=== PATIENT | female | born 1945 ===

== ENCOUNTER 2022-04-20 06:21 | Day surgery (SDC) | payer MEDICARE, SELFPAY ==
[2022-04-20 06:25] VITALS: BP 153/67; PULSE 72; RESP 18; TEMP 36.1; O2SAT 99
--- NOTE | 2022-04-20 06:26 | ANES.PREOP_ITS ---
General Info Date of Service Date Performed: 04/20/22 Height: 5 ft 5 in Weight: 59.421 kg Body Mass Index (BMI): 21.8 Surgical Procedure: Operation Date: 04/20/22 07:40 Proposed Procedure Side Surgeon p Cataract Extraction with IOL Implant Left Gildardo Crandall MD Meds Allergies and Home Medications Allergies Allergy/AdvReac Type Severity Reaction Status Date / Time animal dander Allergy Unknown Verified 04/20/22 06:35 grass pollen Allergy Unknown Verified 04/20/22 06:35 mold Allergy Unknown Verified 04/20/22 06:35 Home Medication Medication Instructions Recorded albuterol sulfate 90 mcg/actuation 2 puff inhalation 6XD PRN 04/16/22 aerosol inhaler (ProAir HFA) apixaban 5 mg tablet (Eliquis) 5 mg PO DIRECTED 04/16/22 atorvastatin 20 mg tablet 20 mg PO DAILY 04/16/22 cholecalciferol (vitamin D3) 50 50 mcg PO DAILY 04/16/22 mcg (2,000 unit) capsule fluticasone propionate 110 2 puff inhalation BID 04/16/22 mcg/actuation HFA aerosol inhaler (Flovent HFA) levothyroxine 125 mcg tablet 125 mcg PO DAILY 04/16/22 loratadine 10 mg capsule 10 mg PO DAILY PRN 04/16/22 metoprolol succinate 50 mg 50 mg PO DAILY 04/16/22 tablet,extended release 24 hr multivitamin 1 tab PO DAILY 04/16/22 omeprazole 20 mg capsule,delayed 20 mg PO DIRECTED 04/16/22 release paroxetine HCl 20 mg tablet 20 mg PO DAILY 04/16/22 Current Visit Medications: Current Medications Generic Name Dose Route Start Last Admin Trade Name Freq PRN Reason Stop Dose Admin Acetaminophen 1,000 mg 04/20/22 06:00 Acetaminophen 500 Mg Tab PO Q4H PRN PRN Miscellaneous Medication 0 ml 04/20/22 06:00 Prednisolone 1%, Moxifloxacin 0.5%, Nepafenac 0.1% 5ml Btl OS DIRECTED [facility] Miscellaneous Medication 0 ml 04/20/22 06:00 Tropicam./Phenyleph. (1/2.5%) 5 Ml Btl OS DIRECTED [facility]ER Tetracaine HCl 0 ml 04/20/22 06:00 Tetracaine 0.5% 4 Ml Btl OS DIRECTED PARMINDER PFSH Active Problems Active Problems: Problem Status Onset Code Nuclear sclerotic cataract of left eye H25.12 Medical History Medical History Acquired renal cyst Actinic keratitis Allergic rhinitis Anxiety Asthma Atrial fibrillation Basal cell carcinoma (BCC) of skin Dermatofibroma Emphysematous bleb of lung Essential tremor SARAH (generalized anxiety disorder) Hyperlipemia Hypertensive disorder Hypothyroid Impaired fasting glucose Insomnia Lipoma of skin Neoplasm of skin Osteochondropathy Osteoporosis Paroxysmal atrial fibrillation Surgical History Surgical History History of cholecystectomy History of colonoscopy History of hernia repair Tobacco Smoking/Tobacco Use Status: Former Tobacco Use Substance Use Substance use type: does not use Vital Signs and Lab Results Lab Results Blood Type / Crossmatch: No Data to Display Complete Blood Count: No Data to Display Complete Metabolic Panel: No Data to Display Liver Function Panel: No Data to Display Coagulation Panel: No Data to Display Cardiac Panel: No Data to Display Arterial Blood Gas: No Data to Display Venous Blood Gas: No Data to Display Pancreas Panel: No Data to Display Thyroid Panel: No Data to Display Infectious Disease: No Data to Display Blood Cultures: No Data to Display Toxicology Panel: No Data to Display Anesthesia Assessment and Plan Anesthesia History Personal History: No History of Anesthesia Complications Family History: No Family History of Anesthesia Complications Exercise Tolerance Exercise Tolerance: Metabolic Equivalents>4 Cardiac & Pulmonary Exam Cardiac Exam: Normal S1/S2 Heart Sounds Pulmonary Exam: Clear Bilateral Breath Sounds Implantable Cardiac Device Does patient have a Pacemaker or an ICD?: No Airway Exam Known Difficult Airway: No Mallampati Class: 2 Mouth Opening: Normal (> 3cm) Thyromental Distance: Greater than 3 cm Neck Range of Motion: Full ROM Neck Circumference: Normal Teeth Condition: Normal Dentition and Removable Dentures/Plates Upper ASA Classification ASA Score: ASA 2 Emergency Case?: No NPO Status NPO Status: NPO Clears >2 hours, Solids >8 hours Anesthesia Plan Resuscitation Status: Full Code Anesthesia Technique: MAC Anesthesia Airway Planned: Natural Airway Monitors Used: Standard Monitors Preoperative Comments:: 77 yo female for cataract removal. Sig PMHx: anxiety, tremor, asthma (albuterol, Flovent), renal cyst, HTN (metoprolol), hypothyroid (levothyroxine), afib (eliquis), former smoker.
[2022-04-20] MEDS: Tropicam./Phenyleph. (1/2.5%) 5 ML BTL OS ×3 (06:34→06:46)
[2022-04-20 07:11] VITALS: BMI 21.8
[2022-04-20] MEDS: Tetracaine 0.5% 4 ML BTL OS (07:28)
[2022-04-20] MEDS: Povidone-Iodine Ophth 30 ML BTL (07:28)
[2022-04-20] MEDS: Lidocaine 2% Jelly 6 ML SYR (07:29)
[2022-04-20] MEDS: Balanced Salt Soln.-PLUS 500 ML BAG (07:35)
[2022-04-20] MEDS: Duovisc Viscoelastic System EACH 1 EACH (07:35)
[2022-04-20] MEDS: Lidocaine 1% Pres-Free 5 ML VIAL (07:36)
[2022-04-20 08:05] VITALS: BP 142/62; PULSE 68; RESP 16; TEMP 36.3; O2SAT 100
--- NOTE | 2022-04-20 08:07 | ROE_ITS ---
Date of service: 04/20/22 Time of Service: 08:08 Operative Note Operative Note DATE OF PROCEDURE: 04/20/22 PRE-OP DIAGNOSIS: Nuclear cataract, left eye POST-OP DIAGNOSIS: same PROCEDURE: Cataract extraction using phacoemulsification with intraocular lens implant, left eye SURGEON: Gildardo Crandall ANESTHESIA TYPE: Local By Surgeon and MAC Refer to Anesthesia Record PATHOLOGY: none sent COMPLICATIONS: None Patient was transported to: same day Patient's condition: stable Implants: Jason and Jason / [employer] Tecnis [id number] Indications: Progressive decreased vision due to cataract, left eye Procedure Description: CATARACT SURGERY OPERATIVE REPORT PREOPERATIVE DIAGNOSIS: 1. Nuclear cataract, left eye POSTOPERATIVE DIAGNOSIS: Same OPERATION: 1. Cataract extraction using phacoemulsification with posterior chamber intraocular lens implant, left eye. IOL: IOL [facility] Resident/Model: Jason & Jason / ALMA Tecnis [id number] IOL Power: + 19.0 diopters IOL Serial Number: [id number] Optic Diameter: 6.0 mm Haptic/Overall Diameter: 13.0 mm PHACO INFO: Rahul [employer] Dermatologyurion Vision System with OZil and Active Fluidics Cumulative Dispersed Energy (CDE): 34.60 seconds SURGEON: Gildardo Crandall MD, JOSE ANESTHESIA: Monitored A [facility] (MAC), with local sub-tenon's anesthetic infiltration COMPLICATIONS: None SPECIMENS: None INDICATIONS FOR PROCEDURE: The patient is a 77-year-old lady with history of diminished visual acuity in her left eye secondary to the development of dense nuclear cataract. She is significantly symptomatic that she desires cataract surgery and attempt to improve and maximize her vision. The option of cataract surgery was offered to the patient and she wished to proceed. PROCEDURE: The correct surgical eye was identified and marked as the left eye and the pupil was dilated in the preoperative area using mydriatics and cycloplegics. The dilated pupil size was 7.0 mm. The patient elected to proceed without oral sedation. The patient was brought to the operating room where cardiopulmonary monitoring was instituted and surgical time-out was performed, confirming the correct operative eye and IOL power. Topical anesthesia was administered and ophthalmic povidone-iodine 5% was instilled into the conjunctival fornices. Lidocaine gel was applied to the cornea and the daren-ocular area was prepped with Betadine 10% solution and draped in the usual sterile fashion for intraocular surgery, including an aperture drape. A Tegaderm transparent film dressing was cut in half and used to cover the lashes and lid margins. Care was taken to sequester the lashes and lid margins under the Tegaderm dressing. A lid speculum was placed between the lids of the operative eye and the Rahul Lux[employer] Revalia operating microscope was maneuvered into position. Yany scissors were then used to make a conjunctival buttonhole approximately 6mm posterior to the limbus in the inferonasal quadrant. Blunt dissection was carried out to expose bare sclera, and a blunt-tipped sub-tenon?s anesthesia cannula was introduced and passed posteriorly along the globe where non- preserved plain lidocaine was injected into posterior sub-Tenon?s space. A sideport knife was used to make a paracentesis port superiorly/superiortemporally. Intraocular phenylephrine/lidocaine was injected int the anterior chamber.. The anterior chamber was filled with viscoelastic. A keratome knife was used to construct a 2-plane near-clear corneal tunnel extending 2.0mm into clear cornea temporally. A flap was raised on the anterior capsule and capsulorhexis forceps were used to complete a continuous curvilinear capsulorhexis of 5.0 mm. Balanced salt solution was then used to perform cortical cleaving hydrodissection and nuclear hydrodelineation until the lens could be freely rotated within the capsular bag. The lens nucleus was then disassembled and removed within the capsular bag and iris plane using phacoemulsification. The nucleus was noted to be quite dense. Additional Viscoat was instilled intermittently during nuclear fragmentation to protect the corneal endothelium. Residual cortical material was removed using the 45-degree angled silicone I/A tip with 0.3mm port. The posterior capsule was carefully polished to remove as much residual lens epithelial cells as safely possible. The capsular bag was then inflated and the anterior chamber deepened with viscoelastic. The lens implant described above was inserted into the capsular bag using the ALMA [place] Injector. A Kuglen hook was used to dial the IOL into position. Residual viscoelastic was then removed first from posterior to the IOL, then from the anterior chamber using the I/A handpiece. The lens implant was noted to center nicely within the capsular bag. The incisions were stromally hydrated, and the anterior chamber was reformed using BSS. Then 0.5cc of moxifloxacin 1.0mg/ml were injected into the capsular bag and anterior chamber. The incisions were checked with a Weck spear and found to be secure. Several drops of ophthalmic povidone-iodine 5% were then applied to the eye followed by two drops of Imprimis combination prednisolone/moxifloxacin/nepafenac solution. The drapes were removed and a clear plastic protective eye shield was placed over the eye. The patient was then returned to Same Day Surgery in stable condition.
--- NOTE | 2022-04-20 08:07 | W.PM.DSUDISC ---
Date of service: 04/20/22 Time of Service: 08:07 Discharge Plan Disposition Patient Disposition: Home Discharge Details Attending Provider: Gildardo Crandall Primary Care Provider: Sybil Mayo Home Meds and New Rx's Prescriptions: No Action multivitamin Tablet 1 tab PO DAILY atorvastatin 20 mg Tablet 20 mg PO DAILY metoprolol succinate 50 mg Tablet Extended Release 24 Hr 50 mg PO DAILY paroxetine HCl 20 mg Tablet 20 mg PO DAILY levothyroxine 125 mcg Tablet 125 mcg PO DAILY omeprazole 20 mg Capsule,Delayed Release(Dr/Ec) 20 mg PO DIRECTED albuterol sulfate [ProAir HFA] 90 mcg/actuation Hfa Aerosol Inhaler 2 puff INHALATION 6XD PRN fluticasone propionate [Flovent HFA] 110 mcg/actuation Hfa Aerosol Inhaler 2 puff INHALATION BID cholecalciferol (vitamin D3) 50 mcg (2,000 unit) Capsule 50 mcg PO DAILY loratadine 10 mg Capsule 10 mg PO DAILY PRN Eliquis 5 mg Tablet 5 mg PO DIRECTED Discharge Instructions Stand Alone Forms: Post-op Topical Cataract, Dionisio Rao (DSU) Discharge Orders Discharge Orders: Discharge Order (Routine); Ordered 04/20/22 Ordered By: Gildardo Crandall DS: Diagnosis Discharge Diagnosis (1) Nuclear sclerotic cataract of left eye: Status: Resolved
--- NOTE | 2022-04-20 08:22 | W.ANESPOSTOP ---
Postoperative Evaluation Date, Time and Location Date Performed: 04/20/22 Time Performed: 08:10 Patient Location: Day Surgery Unit Vital Signs Most Recent Imported Vital Signs: Most Recent Vital Signs Temp Pulse Resp BP Pulse Ox 36.3 C L 68 16 142/62 H 100 04/20/22 08:05 04/20/22 08:05 04/20/22 08:05 04/20/22 08:05 04/20/22 08:05 Pain Score Most Recent Pain Score: Most Recent Pain Score Pain Level 0 04/20/22 08:05 Assessment Mental Status: Awake (Alert & Oriented to Patient Baseline) Airway and Respiratory Function: Patent airway with normal (patient baseline) respiratory exam Cardiovascular Function: Hemodynamically Stable Hydration Status: Adequately Hydrated Nausea & Vomiting: No Nausea or Vomiting Pain: Pt. Denies Any Pain Peripheral Nerve Block: Patient did not receive a nerve block
== END 2022-04-20 08:32 | disposition home or self-care (01) ==
LOC: SUR 06:22
PROVIDERS: PCP Internal Medicine; Visit Provider Ophthalmology
PROC: (CPT 66984; principal; 2022-04-20 07:30)
DX: H25.12 Age-related nuclear cataract, left eye (principal)
CPT/HCPCS: 66984; V2632

== ENCOUNTER 2022-05-04 06:19 | Day surgery (SDC) | payer MEDICARE, SELFPAY ==
[2022-05-04 06:30] VITALS: BP 139/63; PULSE 67; RESP 18; TEMP 36.4; O2SAT 99
[2022-05-04] MEDS: Tropicam./Phenyleph. (1/2.5%) 5 ML BTL OD ×3 (06:37→06:50)
--- NOTE | 2022-05-04 07:10 | W.ANESPRE ---
General Info Date of Service Date Performed: 05/04/22 Height: 5 ft 5 in Weight: 61.5 kg Body Mass Index (BMI): 22.5 Surgical Procedure: Operation Date: 05/04/22 07:40 Proposed Procedure Side Surgeon p Cataract Extraction with IOL Implant Right Gildardo Crandall MD Meds Allergies and Home Medications Allergies Allergy/AdvReac Type Severity Reaction Status Date / Time animal dander Allergy Unknown Verified 05/04/22 06:38 grass pollen Allergy Unknown Verified 05/04/22 06:38 mold Allergy Unknown Verified 05/04/22 06:38 Home Medication Medication Instructions Recorded albuterol sulfate 90 mcg/actuation 2 puff inhalation 6XD PRN 04/16/22 aerosol inhaler (ProAir HFA) apixaban 5 mg tablet (Eliquis) 5 mg PO DIRECTED 04/16/22 atorvastatin 20 mg tablet 20 mg PO DAILY 04/16/22 cholecalciferol (vitamin D3) 50 50 mcg PO DAILY 04/16/22 mcg (2,000 unit) capsule fluticasone propionate 110 2 puff inhalation BID 04/16/22 mcg/actuation HFA aerosol inhaler (Flovent HFA) levothyroxine 125 mcg tablet 125 mcg PO DAILY 04/16/22 loratadine 10 mg capsule 10 mg PO DAILY PRN 04/16/22 metoprolol succinate 50 mg 50 mg PO DAILY 04/16/22 tablet,extended release 24 hr multivitamin 1 tab PO DAILY 04/16/22 omeprazole 20 mg capsule,delayed 20 mg PO DIRECTED 04/16/22 release paroxetine HCl 20 mg tablet 20 mg PO DAILY 04/16/22 Current Visit Medications: Current Medications Generic Name Dose Route Start Last Admin Trade Name Freq PRN Reason Stop Dose Admin Acetaminophen 1,000 mg 05/04/22 06:00 Acetaminophen 500 Mg Tab PO Q4H PRN PRN Miscellaneous Medication 0 ml 05/04/22 06:00 Prednisolone 1%, Moxifloxacin 0.5%, Nepafenac 0.1% 5ml Btl OD DIRECTED [facility] Miscellaneous Medication 0 ml 05/04/22 06:00 05/04/22 06:50 Tropicam./Phenyleph. (1/2.5%) 5 Ml Btl OD 1 drp DIRECTED [facility] Administration Tetracaine HCl 0 ml 05/04/22 06:00 Tetracaine 0.5% 4 Ml Btl OD DIRECTED [facility] Active Problems Active Problems: Problem Status Onset Code Nuclear sclerotic cataract of left eye H25.12 Medical History Medical History Acquired renal cyst Actinic keratitis Allergic rhinitis Anxiety Asthma Atrial fibrillation Basal cell carcinoma (BCC) of skin Dermatofibroma Emphysematous bleb of lung Essential tremor SARAH (generalized anxiety disorder) Hyperlipemia Hypertensive disorder Hypothyroid Impaired fasting glucose Insomnia Lipoma of skin Neoplasm of skin Osteochondropathy Osteoporosis Paroxysmal atrial fibrillation Surgical History Surgical History (Updated 04/20/22 @ 08:07 by Gildardo Crandall MD) History of cholecystectomy History of colonoscopy History of hernia repair Tobacco Smoking/Tobacco Use Status: Former Tobacco Use Substance Use Substance use type: does not use Vital Signs and Lab Results Vital Signs Most Recent Vital Signs in EMR: Most Recent Vital Signs Temp Pulse Resp BP Pulse Ox 36.4 C L 67 18 139/63 99 05/04/22 06:30 05/04/22 06:30 05/04/22 06:30 05/04/22 06:30 05/04/22 06:30 Lab Results Blood Type / Crossmatch: No Data to Display Complete Blood Count: No Data to Display Complete Metabolic Panel: No Data to Display Liver Function Panel: No Data to Display Coagulation Panel: No Data to Display Cardiac Panel: No Data to Display Arterial Blood Gas: No Data to Display Venous Blood Gas: No Data to Display Pancreas Panel: No Data to Display Thyroid Panel: No Data to Display Infectious Disease: No Data to Display Blood Cultures: No Data to Display Toxicology Panel: No Data to Display Anesthesia Assessment and Plan Anesthesia History Personal History: No History of Anesthesia Complications Family History: No Family History of Anesthesia Complications Exercise Tolerance Exercise Tolerance: Metabolic Equivalents>4 Pertinent Negatives Pertinent Negatives: No Symptoms of GERD Cardiac & Pulmonary Exam Cardiac Exam: Normal S1/S2 Heart Sounds Pulmonary Exam: Clear Bilateral Breath Sounds Implantable Cardiac Device Does patient have a Pacemaker or an ICD?: No Airway Exam Known Difficult Airway: No Mallampati Class: 2 Mouth Opening: Normal (> 3cm) Thyromental Distance: Greater than 3 cm Neck Range of Motion: Full ROM Neck Circumference: Normal Teeth Condition: Normal Dentition and Removable Dentures/Plates Upper ASA Classification ASA Score: ASA 2 Emergency Case?: No NPO Status NPO Status: NPO Clears >2 hours, Solids >8 hours Anesthesia Plan Resuscitation Status: Full Code Anesthesia Technique: MAC Anesthesia Airway Planned: Natural Airway Monitors Used: Standard Monitors
[2022-05-04 07:30] VITALS: BMI 22.5
[2022-05-04] MEDS: Lidocaine 1% Pres-Free 5 ML VIAL (07:40)
[2022-05-04] MEDS: Balanced Salt Soln.-PLUS 500 ML BAG (07:41)
[2022-05-04] MEDS: Lidocaine 2% Jelly 6 ML SYR (07:42)
[2022-05-04] MEDS: Povidone-Iodine Ophth 30 ML BTL (07:42)
[2022-05-04] MEDS: Tetracaine 0.5% 4 ML BTL OD (07:43)
[2022-05-04] MEDS: Duovisc Viscoelastic System EACH 1 EACH (07:43)
[2022-05-04 08:02] VITALS: BP 139/68; PULSE 66; RESP 16; TEMP 36.2; O2SAT 99
--- NOTE | 2022-05-04 08:03 | W.PM.DSUDISC ---
Date of service: 05/04/22 Time of Service: 08:03 Discharge Plan Disposition Patient Disposition: Home Discharge Details Attending Provider: Gildardo Crandall Primary Care Provider: Sybil Mayo Home Meds and New Rx's Prescriptions: No Action multivitamin Tablet 1 tab PO DAILY atorvastatin 20 mg Tablet 20 mg PO DAILY metoprolol succinate 50 mg Tablet Extended Release 24 Hr 50 mg PO DAILY paroxetine HCl 20 mg Tablet 20 mg PO DAILY levothyroxine 125 mcg Tablet 125 mcg PO DAILY omeprazole 20 mg Capsule,Delayed Release(Dr/Ec) 20 mg PO DIRECTED albuterol sulfate [ProAir HFA] 90 mcg/actuation Hfa Aerosol Inhaler 2 puff INHALATION 6XD PRN fluticasone propionate [Flovent HFA] 110 mcg/actuation Hfa Aerosol Inhaler 2 puff INHALATION BID cholecalciferol (vitamin D3) 50 mcg (2,000 unit) Capsule 50 mcg PO DAILY loratadine 10 mg Capsule 10 mg PO DAILY PRN Eliquis 5 mg Tablet 5 mg PO DIRECTED Discharge Instructions Stand Alone Forms: Post-op Topical Cataract, Dionisio Rao (DSU) Discharge Orders Discharge Orders: Discharge Order (Routine); Ordered 05/04/22 Ordered By: Gildardo Crandall DS: Diagnosis Discharge Diagnosis (1) Nuclear sclerotic cataract of right eye: Status: Resolved
--- NOTE | 2022-05-04 08:04 | ROE_ITS ---
Date of service: 05/04/22 Time of Service: 08:04 Operative Note Operative Note DATE OF PROCEDURE: 05/04/22 PRE-OP DIAGNOSIS: Nuclear cataract, right eye POST-OP DIAGNOSIS: same PROCEDURE: Cataract extraction using phacoemulsification with intraocular lens implant, right eye SURGEON: Gildardo Crandall ANESTHESIA TYPE: Local By Surgeon and MAC Refer to Anesthesia Record ESTIMATED BLOOD LOSS: 0 PATHOLOGY: none sent COMPLICATIONS: None Patient was transported to: same day Patient's condition: stable Implants: Jason & Jason Tecnis Eyhance [id number] Indications: Progressive visual loss due to cataract, right eye Procedure Description: CATARACT SURGERY OPERATIVE REPORT PREOPERATIVE DIAGNOSIS: 1. Nuclear cataract, right eye POSTOPERATIVE DIAGNOSIS: Same OPERATION: 1. Cataract extraction using phacoemulsification with posterior chamber intraocular lens implant, right eye. IOL: IOL Abrasive Band Winder/Model: Jason & Jason Tecnis Eyhance [id number] IOL Power: + 20.5 diopters IOL Serial Number: [id number] Optic Diameter: 6.0mm Haptic/Overall Diameter: 13.0mm PHACO INFO: [employer] Vision System with OZil and Active Fluidics Cumulative Dispersed Energy (CDE): 30.71 seconds SURGEON: Gildardo Crandall MD, JOSE ANESTHESIA: Monitored Anesthesia Care (MAC), with local sub-tenon's anesthetic infiltration COMPLICATIONS: None SPECIMENS: None INDICATIONS FOR PROCEDURE: The patient is a 77-year-old lady with history of diminished visual acuity in both eyes secondary to the development of bilateral nuclear cataract. She has already undergone cataract surgery in the left eye and is doing well postoperatively. She now presents for cataract surgery in the right eye. PROCEDURE: The correct surgical eye was identified and marked as the right eye and the pupil was dilated in the preoperative area using mydriatics and cycloplegics. The dilated pupil size was 7.0 mm. The patient elected to proceed without oral sedation. The patient was brought to the operating room where cardiopulmonary monitoring was instituted and surgical time-out was performed, confirming the correct operative eye and IOL power. Topical anesthesia was administered and ophthalmic povidone-iodine 5% was instilled into the conjunctival fornices. Lidocaine gel was applied to the cornea and the daren-ocular area was prepped with Betadine 10% solution and draped in the usual sterile fashion for intraocular surgery, including an apertu re drape. A Tegaderm transparent film dressing was cut in half and used to cover the lashes and lid margins. Care was taken to sequester the lashes and lid margins under the Tegaderm dressing. A lid speculum was placed between the lids of the operative eye and the Rahul Lux[employer] Revalia operating microscope was maneuvered into position. Yany scissors were then used to make a conjunctival buttonhole approximately 6mm posterior to the limbus in the inferonasal quadrant. Blunt dissection was carried out to expose bare sclera, and a blunt-tipped sub-tenon?s anesthesia cannula was introduced and passed posteriorly along the globe where non- preserved plain lidocaine was injected into posterior sub-Tenon?s space. A sideport knife was used to make a paracentesis port inferotemporally. Intra ocular phenylephrine/lidocaine was injected into the anterior chamber. The anterior chamber was filled with viscoelastic. A keratome knife was used to construct a 2-plane near-clear corneal tunnel extending 2.0mm into clear cornea superiortemporally. A flap was raised on the anterior capsule and capsulorhexis forceps were used to complete a continuous curvilinear capsulorhexis of 5.5 mm. Balanced salt solution was then used to perform cortical cleaving hydrodissection and nuclear hydrodelineation until the lens could be freely rotated within the capsular bag. The lens nucleus was then disassembled and removed within the capsular bag and iris plane using phacoemulsification. Residual cortical material was removed using the I/A handpiece. The posterior capsule was carefully polished to remove as much residual lens epithelial cells as safely possible. The capsular bag was then inflated and the anterior chamber deepened with viscoelastic. The lens implant described above was inserted into the capsular bag using the Jason and Pravin Simplicity pre-loaded injector. A Kuglen hook was used to dial the IOL into position. Residual viscoelastic was then removed first from posterior to the IOL, then from the anterior chamber using the I/A handpiece. The lens implant was noted to center nicely within the capsular bag. The incisions were stromally hydrated, and the anterior chamber was reformed using BSS. Then 0.5cc of moxifloxacin 1.0mg/ml were injected into the capsular bag and anterior chamber. The incisions were checked with a Weck spear and found to be secure. Several drops of ophthalmic povidone-iodine 5% were then applied to the eye followed by two drops of Imprimis combination prednisolone/moxifloxacin/nepafenac solution. The drapes were removed and a clear plastic protective eye shield was placed over the eye. The patient was then returned to Same Day Surgery in stable condition.
--- NOTE | 2022-05-04 08:16 | W.ANESPOSTOP ---
Postoperative Evaluation Date, Time and Location Date Performed: 05/04/22 Time Performed: 08:16 Patient Location: Day Surgery Unit Vital Signs Most Recent Imported Vital Signs: Most Recent Vital Signs Temp Pulse Resp BP Pulse Ox 36.2 C L 66 16 139/68 99 05/04/22 08:02 05/04/22 08:02 05/04/22 08:02 05/04/22 08:02 05/04/22 08:02 Pain Score Most Recent Pain Score: Most Recent Pain Score Pain Level 0 05/04/22 08:02 Assessment Mental Status: Awake (Alert & Oriented to Patient Baseline) Airway and Respiratory Function: Patent airway with normal (patient baseline) respiratory exam Cardiovascular Function: Hemodynamically Stable Hydration Status: Adequately Hydrated Nausea & Vomiting: No Nausea or Vomiting Pain: Pt. Denies Any Pain Peripheral Nerve Block: Other (Local by Dr. Crandall)
== END 2022-05-04 08:19 | disposition home or self-care (01) ==
LOC: SUR 06:19
PROVIDERS: PCP Internal Medicine; Visit Provider Ophthalmology
PROC: (CPT 66984; principal; 2022-05-04 07:30)
DX: H25.11 Age-related nuclear cataract, right eye (principal)
CPT/HCPCS: 66984; V2632